=== PATIENT | female | born 1965 | race Caucasian/White ===

== ENCOUNTER 2023-11-12 16:55 | Inpatient (IN) | payer BC, OTHER ==
[~2023-11-12] VITALS: Ht 160 cm; Wt 91.5 kg
[2023-11-12 18:55] LABS: Basophils # (auto) 0 10 ^3/uL (0-0.2); Eosinophils # (auto) 0 10 ^3/uL (0-0.8); Hematocrit 37.3 % (36.0-46.0); Hemoglobin 12.7 g/dL (12.2-16.2); Lymphocytes # (auto) 1.1 10 ^3/uL (0.4-5.4); Lymphocytes % (auto) 7.1 % (10.0-50.0); Mean Corpuscular Hemoglobin 30.7 pg (28.0-32.0); Mean Corpuscular Volume 90.2 fL (80.0-100.0); Monocytes # (auto) 1.2 10 ^3/uL (0-1.3); Monocytes % (auto) 7.6 % (0.0-12.0); Neutrophils # (auto) 13.5 10 ^3/uL (1.6-8.6); Neutrophils % (auto) 85.3 % (37.0-80.0); Red Blood Cells 4.13 10^6/uL (4.0-5.20); Red Cell Distribution Width 13.4 % (11.8-14.3); White Blood Cell 15.8 10^3/uL (4.4-10.8)
[2023-11-12] MEDS: SODIUM CHLORIDE 0.9% 1,000 ML IV ONE (18:57)
[2023-11-12] MEDS: levoFLOXacin 250 MG TAB PO ONE (19:01)
[2023-11-12 19:12] LABS: Alanine Aminotransferase 57 U/L (7-40); Albumin 4.7 g/dL (3.2-4.8); Alkaline Phosphatase 211 U/L (46-116); Anion Gap 6 (5-15); Aspartate Aminotransferase 43 U/L (13-40); BUN/Creatinine Ratio 15.7 (10.0-20.0); Blood Urea Nitrogen 14 mg/dL (9-23); Calcium 10.2 mg/dL (8.5-10.1); Carbon Dioxide 23 mmol/L (20-30); Chloride 101 mmol/L (98-107); Glucose 109 mg/dL (74-106); Potassium 3.5 mmol/L (3.5-5.1); Sodium 130 mmol/L (136-145)
[2023-11-12 19:13] LABS: Bilirubin, Total 0.9 mg/dL (0.2-1.0); Total Protein 7.7 g/dL (5.7-8.2)
[2023-11-12 19:21] LABS: CRP High Sensitivity > 20.00 mg/dL (<1.0)
[2023-11-12 19:35] LABS: Lipase 30 U/L (12-53)
[2023-11-12] MEDS: ONDANSETRON ODT 4 MG TAB PO ONE (20:00)
[2023-11-12] MEDS: HYDROcodone-ACET 5/325MG TAB PO ONE (20:00)
[2023-11-12 21:14] LABS: Urine Bacteria FEW /hpf (None Seen); Urine Blood 1+ /uL (Negative); Urine Budding Yeast OCCASIONAL /hpf (None Seen); Urine Clarity Turbid (Clear); Urine Color Yellow (Yellow); Urine Hyaline Cast FEW /lpf (0 - 2); Urine Mucus FEW (None Seen); Urine Protein, UAD 2+ (Negative); Urine Specific Gravity 1.027 (1.001-1.035); Urine Urobilinogen 3 mg/dL (Negative); Urine WBC 62 /hpf (0 - 5)
[2023-11-12] MEDS ORDERED: VANCOMYCIN PER PHARMACY 0 MG IV SCH (23:30)
[2023-11-12] MEDS ORDERED: DOCUSATE SOD 100 MG CAP PO PRN (23:30)
[2023-11-13] VITALS (7 sets, daily range): BP systolic 97–135; BP diastolic 51–72; PULSE 71–93; RESP 16–20; TEMP 97.9–99.5; O2SAT 94–97
[2023-11-13] MEDS ORDERED: NITROGLYCERIN 0.4 MG SL TAB SL PRN
[2023-11-13] MEDS ORDERED: MORPHINE SULFATE INJ 2 MG/ml SYRG IV PRN
[2023-11-13] MEDS ORDERED: metroNIDAZOLE 500MG/100ML 100 ML IV ONE (00:45)
[2023-11-13 02:59] LABS: Basophils # (auto) 0 10 ^3/uL (0-0.2); Basophils % (auto) 0.1 % (0.0-2.0); Eosinophils # (auto) 0 10 ^3/uL (0-0.8); Hematocrit 36.5 % (36.0-46.0); Hemoglobin 12.1 g/dL (12.2-16.2); Lymphocytes # (auto) 1.6 10 ^3/uL (0.4-5.4); Lymphocytes % (auto) 9.8 % (10.0-50.0); Mean Corpuscular Hemoglobin 30.2 pg (28.0-32.0); Mean Corpuscular Hgb Conc. 33.1 g/dL (32.0-36.0); Mean Corpuscular Volume 91.4 fL (80.0-100.0); Monocytes # (auto) 1.5 10 ^3/uL (0-1.3); Monocytes % (auto) 9.4 % (0.0-12.0); Neutrophils # (auto) 13.2 10 ^3/uL (1.6-8.6); Neutrophils % (auto) 80.7 % (37.0-80.0); Red Cell Distribution Width 13.6 % (11.8-14.3); White Blood Cell 16.4 10^3/uL (4.4-10.8)
[2023-11-13 03:06] LABS: Alanine Aminotransferase 48 U/L (7-40); Albumin 4.5 g/dL (3.2-4.8); Alkaline Phosphatase 188 U/L (46-116); Anion Gap 14 (5-15); Aspartate Aminotransferase 29 U/L (13-40); BUN/Creatinine Ratio 16.3 (10.0-20.0); Blood Urea Nitrogen 14 mg/dL (9-23); Calcium 9.9 mg/dL (8.7-10.4); Carbon Dioxide 16 mmol/L (20-30); Chloride 101 mmol/L (98-107); Glucose 100 mg/dL (74-106); Potassium 3.7 mmol/L (3.5-5.1); Sodium 131 mmol/L (136-145)
[2023-11-13 03:07] LABS: Bilirubin, Total 0.7 mg/dL (0.2-1.0); Total Protein 7.4 g/dL (5.7-8.2)
[2023-11-13] MEDS: SODIUM CHLORIDE 0.9% 1,000 ML IV SCH (03:57)
[2023-11-13] MEDS: cefTRIAXone 1GM/50ML D5W 50 ML IV ONE (03:58)
[2023-11-13] MEDS: MORPHINE SULFATE INJ 2 MG/ml SYRG IV PRN (05:09)
[2023-11-13] MEDS: IBUPROFEN 600 MG TAB PO PRN (05:10)
[2023-11-13] MEDS: VANCOMYCIN 1GM/200ML 200 ML IV ONE (05:18)
[2023-11-13] MEDS ORDERED: DICY20TA PO (06:32)
[2023-11-13] MEDS: levoFLOXacin 500MG 100 ML IV SCH (09:07)
[2023-11-13] MEDS: HYDROcodone-ACET 5/325MG TAB PO PRN (12:30)
[2023-11-13] MEDS: ONDANSETRON HCL 4 MG/2 ML VIAL IV PRN (12:30)
[2023-11-13] MEDS: VANCOMYCIN 1GM/200ML 200 ML IV SCH (17:33)
[2023-11-13] MEDS: SUMAtriptan SUCCINATE 25 MG TAB PO PRN (21:14)
[2023-11-14 00:56] VITALS: BP 112/61; PULSE 85; RESP 19; TEMP 98.6; O2SAT 100
[2023-11-14 05:00] VITALS: BP 112/60; PULSE 85; RESP 17; TEMP 98.3; O2SAT 92
[2023-11-14 08:00] VITALS: BP 118/67; PULSE 78; RESP 16; TEMP 98.5; O2SAT 96
[2023-11-14 12:00] VITALS: BP 110/57; PULSE 77; RESP 16; TEMP 98.4; O2SAT 92
[2023-11-14] MEDS ORDERED: TAMS1CAP25 PO (16:30)
[2023-11-14 17:00] VITALS: BP 113/57; PULSE 81; RESP 16; TEMP 98.2; O2SAT 95
[2023-11-14 18:07] VITALS: TEMP 36.8
== END 2023-11-14 19:24 | disposition home or self-care (01) | DRG 872 ==
LOC: ER 16:55 → WEST WING 23:51 → OVERFLOW 23:51 → WEST WING 11-13 04:08
PROVIDERS: ADMIT Internal Medicine; ATTEND Internal Medicine
DX: A41.9 Sepsis, unspecified organism (principal); N13.6 Pyonephrosis; K57.32 Diverticulitis of large intestine without perforation or abscess without bleeding; E87.1 Hypo-osmolality and hyponatremia; Z88.0 Allergy status to penicillin; Z79.899 Other long term (current) drug therapy; Z90.49 Acquired absence of other specified parts of digestive tract
CPT/HCPCS: 36415; 74176; 80053; 80202; 81001; 82565; 83605; 83690; 84484; 85025; 86141; 87040; 87086; 87088; 87186; 96360; 99291; G0378; J1956; J2405; Q0162